=== PATIENT | female | born 1930 | race Asian ===

== ENCOUNTER → 2016-08-30 | Outpatient (CLI) | payer OTHER ==
--- NOTE | 2016-08-30 13:33 | DX ---
Lumbar spine 5 views History: Pain for one month. Comparison: Sacroiliac joint from the same day. 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 There are hypoplastic 12th ri bs. Numbering will be performed with the transitional vertebral body labeled as L5. Mild dextroscolio sis of the lumbar spine is present. AP alignment is normal. There is a mild to moderate compression f racture at T12, age indeterminant, with approximately 30% anterior height reduction. Severe vertebral spondylosis is present at L3-L4 and L4-L5 with marked disk height reduction endplate sclerosis, and vacuum disk. Permanent disk space is present at L5-S1. There is mild vertebral spondylosis throughout the remainder of the visualized spine. Moderate to severe facet hypertrophy is present from L2 throu gh S1. Osteopenia is present. Atherosclerotic calcification is present in the aorta. A round radiopaq ue structure overlying the stomach is likely related to an ingested pill. Impression: 1. Transitional lumbar anatomy as above, with a mild to moderate compression fracture, age indetermin ate, at T12. 2. Severe degenerative change from L3 through L5. 3. Osteopenia. 4. Additional findings as above.
--- NOTE | 2016-08-30 14:08 | DX ---
Sacrum and coccyx 3 Views History: Trauma, pain. Comparison: Lumbar spine from the same day. 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 There is moderate to severe d egenerative change in the lumbar spine. Mild degenerative change is present in the sacroiliac joints. Alignment of the hips is normal. Osteopenia is present. Impression: No definite etiology for the patient's pain. If pain persists and clinical suspicion warrants, consider MR.
== END ==
LOC: BMCIMAGING 12:23
PROVIDERS: ATTEND Internal Medicine
DX: M53.3 Sacrococcygeal disorders, not elsewhere classified (principal); M51.36 Other intervertebral disc degeneration, lumbar region; M85.80 Other specified disorders of bone density and structure, unspecified site; M79.604 Pain in right leg

== ENCOUNTER → 2016-09-30 | Outpatient (CLI) | payer OTHER | LOC: FIMAGING 07:22 | PROVIDERS: ATTEND Physical Medicine & Rehabilitation | DX: G31.9 Degenerative disease of nervous system, unspecified (principal); M48.06 Spinal stenosis, lumbar region ==

== ENCOUNTER → 2018-03-23 | Outpatient (CLI) | payer OTHER | LOC: FIMAGING 13:10 | PROVIDERS: ATTEND Physical Medicine & Rehabilitation | DX: M48.061 Spinal stenosis, lumbar region without neurogenic claudication (principal); M53.85 Other specified dorsopathies, thoracolumbar region ==

== ENCOUNTER → 2018-08-21 | Outpatient (CLI) | payer OTHER | LOC: BMCIMAGING 12:13 | PROVIDERS: ATTEND Internal Medicine | DX: J40 Bronchitis, not specified as acute or chronic (principal); S22.080A Wedge compression fracture of T11-T12 vertebra, initial encounter for closed fracture ==